=== PATIENT | male | born 1945 ===

== ENCOUNTER 2020-07-10 08:09 | Outpatient (CLI) | payer OTHER ==
[~2020-07-10 08:09] MED LIST: POLY119PG PO; SURFAK240 M1 PO; TAMS0.4C PO; ULTRACET PO; ULTRAM50 MG PO
== END 2020-07-10 08:13 | disposition home or self-care (01) ==
LOC: RX STUDY 08:09
PROVIDERS: ATTEND Surgery
DX: K21.00 Gastro-esophageal reflux disease with esophagitis, without bleeding (principal); K22.0 Achalasia of cardia